=== PATIENT | female | born 1995 ===

== ENCOUNTER 2021-09-28 13:41 | Outpatient (CLI) | payer OTHER | END 2021-09-28 14:08 | disposition home or self-care (01) | LOC: PRENATAL 13:41 | PROVIDERS: ATTEND Obstetrics & Gynecology Maternal & Fetal Medicine | DX: O35.0XX1 Maternal care for (suspected) central nervous system malformation in fetus, fetus 1 (principal); O35.3XX1 Maternal care for (suspected) damage to fetus from viral disease in mother, fetus 1; O98.512 Other viral diseases complicating pregnancy, second trimester; Z36.89 Encounter for other specified antenatal screening; Z3A.26 26 weeks gestation of pregnancy ==

== ENCOUNTER 2021-12-14 08:53 | Outpatient (CLI) | payer OTHER ==
[2021-12-15] MEDS ORDERED: DIALYVITE 800-1 EACH PO (07:44)
== END 2021-12-14 10:20 | disposition home or self-care (01) ==
LOC: PRENATAL 08:53
PROVIDERS: ATTEND Obstetrics & Gynecology Maternal & Fetal Medicine
DX: O35.0XX0 Maternal care for (suspected) central nervous system malformation in fetus, not applicable or unspecified (principal); O26.849 Uterine size-date discrepancy, unspecified trimester; O36.5990 Maternal care for other known or suspected poor fetal growth, unspecified trimester, not applicable or unspecified; O34.219 Maternal care for unspecified type scar from previous cesarean delivery

== ENCOUNTER 2021-12-15 07:06 | Inpatient (IN) | payer OTHER ==
[~2021-12-15] VITALS: Ht 157.5 cm; Wt 2.3 kg
[2021-12-15] MEDS ORDERED: DIALYVITE 800-1 EACH PO (07:44)
== END 2021-12-18 17:22 | DRG 788 ==
LOC: LDR 07:06 → O/R 13:41 → SURG-SUITE 14:12
PROVIDERS: ADMIT Obstetrics & Gynecology; ATTEND Obstetrics & Gynecology
PROC: 4A1HXCZ Monitoring of Products of Conception, Cardiac Rate, External Approach (ICD-10-PCS; 2021-12-15)
PROC: 10D00Z1 Extraction of Products of Conception, Low, Open Approach (ICD-10-PCS; principal; 2021-12-15 13:00)
DX: O34.211 Maternal care for low transverse scar from previous cesarean delivery (principal); O36.5930 Maternal care for other known or suspected poor fetal growth, third trimester, not applicable or unspecified; Z3A.37 37 weeks gestation of pregnancy; Z37.0 Single live birth; Z20.822 Contact with and (suspected) exposure to COVID-19